=== PATIENT | male | born 1945 | race Caucasian/White ===

== ENCOUNTER 2019-09-02 12:41 | Emergency (ER) | payer MEDICARE, SELFPAY ==
[2019-09-02 12:48] VITALS: BP 133/73; PULSE 48; RESP 18; TEMP 36.9; O2SAT 98; BMI 28.8
--- NOTE | 2019-09-02 12:53 | DI.RAD.S_ITS ---
PROCEDURE: XR CHEST 1V INDICATIONS: chest pain TECHNIQUE: One view of the chest was acquired. COMPARISON: None. FINDINGS: Surgical changes and devices: None. Lungs and pleura: There are low lung volumes, which has resulted in difficulty evaluating for abnormalities at the lung bases. No large area of pulmonary consolidation is evident. There is no effusion or pneumothorax. The pulmonary vascular markings are increased within the perihilar regions. Mediastinum: Mediastinal contours appear normal. Heart size is mildly enlarged. There is aortic atherosclerosis. Bones and chest wall: No suspicious bony lesions. An age-indeterminate 6 posterior left rib deformity is evident. The degenerative changes of the spine and shoulders are present, which are not well characterized. Overlying soft tissues appear unremarkable. IMPRESSION: 1. Cardiomegaly with associated vascular congestion may represent developing pulmonary edema. Please correlate clinically. 2. Age-indeterminate left posterior 6th fracture. Dictated by: Shayne Domínguez M.D. on 09/02/2019 at 12:41 Approved by: Shayne Domínguez M.D. on 09/02/2019 at 12:42
[2019-09-02 13:14] VITALS: BP 120/57; PULSE 60; RESP 16; O2SAT 100
--- NOTE | 2019-09-02 13:23 | PC.NURSE ---
Pt reports hign BP this morning 150s'/100s which is not normal for him, he took his morning meds for HTN. denies CP SOB or NV. BP at this time 120/67 and HR 60. appears well. states im bored IV placed and labs sent. ekg and cxr obtained. NAD.
[2019-09-02 13:30] VITALS: BP 106/66; PULSE 48; O2SAT 98
[2019-09-02 13:33] LABS: Add Manual Diff / Slide Review NO; Basophils Absolute Auto 0 /uL (0-100); Basophils Percent Auto 0.9 % (0-2); Eosinophils Absolute Auto 0 /uL (0-450); Hemoglobin 14.5 g/dL (13.5-17.5); Lymphocytes Absolute Auto 1400 /uL (1100-4500); Lymphocytes Percent Auto 26.5 % (25-40); Mean Corpuscular HGB Conc 35.4 % (30-36); Mean Corpuscular Hemoglobin 32.5 PG (26-34); Mean Corpuscular Volume 91.8 fL (80-100); Monocytes Absolute Auto 700 /uL (0-900); Monocytes Percent Auto 14.1 % (3-14); Neutrophils Absolute Auto 3000 /uL (1500-7000); Neutrophils Percent Auto 57.5 % (50-75); Platelet Count 206 X10^3/uL (150-400); Red Blood Cell Count 4.47 X10^6/uL (4.5-5.9); Red Cell Distribution Width 13.5 % (11.6-14.8); White Blood Cell Count 5.1 X10^3/uL (4.5-11.0)
[2019-09-02 13:41] LABS: Alanine Aminotransferase 24 IU/L (<50); Albumin 4.6 g/dL (3.5-5.0); Albumin Globulin Ratio 1.5 (1.0-2.8); Alkaline Phosphatase 45 U/L (38-126); Aspartate Aminotransferase 30 IU/L (17-59); BUN Creatinine Ratio 18.6 (6-22); Bilirubin Total 0.6 mg/dL (0.2-1.3); Blood Urea Nitrogen 13 mg/dL (9-20); Calcium 9.2 mg/dL (8.4-10.2); Carbon Dioxide 27 mmol/L (22-32); Chloride 98 mmol/L (98-107); Creatine Kinase 92 U/L (55-170); Estimated Glomerular Filt Rate > 60.0 mL/min (>60); Glucose 100 mg/dL (80-110); HEMOLYSIS < 15 (0-50); Lipase 30 U/L (23-300); Potassium 4.1 mmol/L (3.4-5.1); Sodium 134 mmol/L (137-145); Total Protein 7.6 g/dL (6.3-8.2)
[2019-09-02 13:43] LABS: INR 1.1 (0.9-1.3); Prothrombin Time 12.6 SECONDS (10.1-12.7)
[2019-09-02 13:46] LABS: PTT Partial Thromboplastin Tim 32 SECONDS (26.4-36.2)
[2019-09-02 13:53] LABS: Troponin I < 0.012 ng/mL (0.01-0.034)
[2019-09-02 14:00] VITALS: BP 169/72; PULSE 54; O2SAT 94
[2019-09-02 14:19] LABS: B Type Natriuretic Peptide < 100 (<100)
[2019-09-02 16:04] LABS: Creatine Kinase 102 U/L (55-170)
[2019-09-02 16:16] LABS: Troponin I < 0.012 ng/mL (0.01-0.034)
[2019-09-02 16:20] LABS: CKMB % Relative Index 1.6 % (1.5-5.0); Creatine Kinase MB 1.62 ng/mL (<2.37)
[2019-09-02 17:04] VITALS: BP 133/66; PULSE 51; RESP 14; O2SAT 98
--- NOTE | 2019-09-02 19:16 | ED_ITS ---
HPI - General Adult <YASMIN Elkins - Last Filed: 09/02/19 19:30> General Chief complaint: Hypertension Stated complaint: Sent From [place], Elevated BP, Heart Issues Time Seen by Provider: 09/02/19 13:32 Source: patient Mode of arrival: Ambulatory Limitations: no limitations History of Present Illness HPI narrative: The patient is a 73-year-old male former smoker with history of hypertension who presents with a chief complaint of hypertensive episode this morning in the 150/100 range. Currently denies any dizziness, lightheadedness, headache, nausea vomiting diarrhea chest pain shortness of breath. He is without physical complaint on exam. He does admit to some slight ?upset stomach/indigestion over the past few days but nothing today. [place] was told to come to the emergency department to have his troponin checked. Related Data Previous Rx's Medication Instructions Recorded chlorthalidone 25 mg PO QDAY #45 tab 02/07/17 Review of Systems <YASMIN Elkins - Last Filed: 09/02/19 19:30> Review of Systems Narrative: GENERAL: Denies chills, fatigue, malaise, fever, sweats. HEENT: Denies sinus pain, ear pain, sore throat, difficulty swallowing, dizziness. RESPIRATORY: Denies dyspnea, cough, wheezing, hemoptysis, sputum. CARDIOVASCULAR: See HPI GASTROINTESTINAL: See HPI : Denies dysuria, frequency, incontinence, hematuria, urinary retention. MUSCULOSKELETAL: denies weakness, joint pain, or bony pain SKIN: Denies rash, skin lesions, or other NEUROLOGIC: Denies weakness, headache, numbness, change in speech, confusion, seizures, incoordination. PSYCHIATRIC: No concerning psychosocial issues. 12 point review of systems is negative except for those stated above Patient History <YASMIN Elkins - Last Filed: 09/02/19 19:30> Surgical History (Updated 12/20/17 @ 05:05 by Conversion Provider) History of hip replacement Family History (Updated 06/12/15 @ 00:00 by Conversion Provider) Mother Age: 99 Heart disease Hypertension Exam <YASMIN Elkins - Last Filed: 09/02/19 19:30> Narrative Exam Narrative: GENERAL: This is a well-nourished, well-developed patient, no acute distress HEAD: Atraumatic. Normocephalic. No temporal or scalp tenderness. EYES: Pupils equal round and reactive. Extraocular motions intact. No scleral icterus. No injection or drainage. ENT: Nose without bleeding, purulent drainage or septal hematoma. Throat without erythema, tonsillar hypertrophy or exudate. Uvula midline. Airway patent. NECK: Trachea midline. No JVD or lymphadenopathy. Supple, nontender, no meningeal signs. CARDIOVASCULAR: Regular rate and rhythm without murmurs, gallops, or rubs. RESPIRATORY: Clear to auscultation. Breath sounds equal bilaterally. No wheezes, rales, or rhonchi no cough. No increased respiratory effort no accessory muscle use. GASTROINTESTINAL: Abdomen soft, non-tender, nondistended. No hepato- splenomegaly, or palpable masses. No guarding.. No pain to palpation. Negative Gonsales sign. No pain at McBurney's point. Active bowel sounds all quadrants EXTREMITIES: No clubbing, cyanosis, or edema. No joint tenderness, effusion, or edema noted. BACK: Nontender without deformity or crepitance. No flank tenderness. NEURO: AOx3. SKIN: No rash or erythema on visible exam Initial Vital Signs Initial Vital Signs: Vital Signs Temperature 98.4 F 09/02/19 12:48 Pulse Rate 48 L 09/02/19 12:48 Respiratory Rate 18 09/02/19 12:48 Blood Pressure 133/73 09/02/19 12:48 Pulse Oximetry 98 09/02/19 12:48 <Mery Fay MD - Last Filed: 09/02/19 19:48> Initial Vital Signs Initial Vital Signs: Vital Signs Temperature 98.4 F 09/02/19 12:48 Pulse Rate 48 L 09/02/19 12:48 Respiratory Rate 18 09/02/19 12:48 Blood Pressure 133/73 09/02/19 12:48 Pulse Oximetry 98 09/02/19 12:48 Course <YASMIN Elkins - Last Filed: 09/02/19 19:30> Orders Ordered: ED Orders 09/02/19 12:53 XR chest 1V Stat EKG-12 Lead Stat 09/02/19 13:21 B Type Natriuretic Peptide Stat Complete Blood Count AUTO DIFF Stat Comprehensive Metabolic Panel Stat Lipase Stat Partial Thromboplastin Time Stat Prothrombin Time INR Stat Troponin & CK Cardiac Panel Stat 09/02/19 15:35 Troponin & CK Cardiac Panel Stat Vital Signs Vital signs: Vital Signs - 8 hr 09/02/19 12:48 09/02/19 13:14 09/02/19 13:30 Temperature 98.4 F Pulse Rate 48 L 60 48 L Respiratory Rate 18 16 Blood Pressure 133/73 Blood Pressure [Left Arm] 120/57 L 106/66 Pulse Oximetry 98 100 98 09/02/19 14:00 09/02/19 17:04 Temperature Pulse Rate 54 L 51 L Respiratory Rate 14 Blood Pressure 133/66 Blood Pressure [Left Arm] 169/72 H Pulse Oximetry 94 98 <Mery Fay MD - Last Filed: 09/02/19 19:48> Orders Ordered: ED Orders 09/02/19 12:53 XR chest 1V Stat EKG-12 Lead Stat 09/02/19 13:21 B Type Natriuretic Peptide Stat Complete Blood Count AUTO DIFF Stat Comprehensive Metabolic Panel Stat Lipase Stat Partial Thromboplastin Time Stat Prothrombin Time INR Stat Troponin & CK Cardiac Panel Stat 09/02/19 15:35 Troponin & CK Cardiac Panel Stat Vital Signs Vital signs: Vital Signs - 8 hr 09/02/19 12:48 09/02/19 13:14 09/02/19 13:30 Temperature 98.4 F Pulse Rate 48 L 60 48 L Respiratory Rate 18 16 Blood Pressure 133/73 Blood Pressure [Left Arm] 120/57 L 106/66 Pulse Oximetry 98 100 98 09/02/19 14:00 09/02/19 17:04 Temperature Pulse Rate 54 L 51 L Respiratory Rate 14 Blood Pressure 133/66 Blood Pressure [Left Arm] 169/72 H Pulse Oximetry 94 98 Medical Decision Making <LENNY Elkins-BC - Last Filed: 09/02/19 19:30> Lab Data Result diagrams: 09/02/19 13:21 09/02/19 13:21 Labs: Lab Results 09/02/19 09/02/19 09/02/19 Range/Units 13:21 13:21 13:21 WBC 5.1 (4.5-11.0) X10^3/uL RBC 4.47 L (4.5-5.9) X10^6/uL Hgb 14.5 (13.5-17.5) g/dL Hct 41.0 (41-53) % MCV 91.8 (80-100) fL MCH 32.5 (26-34) PG MCHC 35.4 (30-36) % RDW 13.5 (11.6-14.8) % Plt Count 206 (150-400) X10^3/uL Neut % (Auto) 57.5 (50-75) % Lymph % (Auto) 26.5 (25-40) % [place] % (Auto) 14.1 H (3-14) % Eos % (Auto) 1.0 L (2-4) % Baso % (Auto) 0.9 (0-2) % Neut # (Auto) 3000 (8356-0601) /uL Lymph # (Auto) 1400 (2872-8473) /uL [place] # (Auto) 700 (0-900) /uL Eos # (Auto) 0 (0-450) /uL Baso # (Auto) 0 (0-100) /uL PT 12.6 (10.1-12.7) SECONDS INR 1.1 (0.9-1.3) APTT 32 (26.4-36.2) SECONDS Sodium 134 L (137-145) mmol/L Potassium 4.1 (3.4-5.1) mmol/L Chloride 98 (98-107) mmol/L Carbon Dioxide 27 (22-32) mmol/L BUN 13 (9-20) mg/dL Creatinine 0.70 (0.66-1.25) mg/dL Estimated GFR > 60.0 (>60) mL/min BUN/Creatinine Ratio 18.6 (6-22) Glucose 100 (80-110) mg/dL Calcium 9.2 (8.4-10.2) mg/dL Total Bilirubin 0.6 (0.2-1.3) mg/dL AST 30 (17-59) IU/L ALT 24 (<50) IU/L Alkaline Phosphatase 45 (38-126) U/L Total Creatine Kinase 92 (55-170) U/L CK-MB (CK-2) TNP CK-MB (CK-2) Rel Index TNP Troponin I < 0.012 (0.01-0.034) ng/mL B-Natriuretic Peptide (<100) Total Protein 7.6 (6.3-8.2) g/dL Albumin 4.6 (3.5-5.0) g/dL Globulin 3.0 (1.7-4.1) g/dL Albumin/Globulin Ratio 1.5 (1.0-2.8) Lipase 30 (23-300) U/L 09/02/19 09/02/19 Range/Units 13:21 15:35 WBC (4.5-11.0) X10^3/uL RBC (4.5-5.9) X10^6/uL Hgb (13.5-17.5) g/dL Hct (41-53) % MCV (80-100) fL MCH (26-34) PG MCHC (30-36) % RDW (11.6-14.8) % Plt Count (150-400) X10^3/uL Neut % (Auto) (50-75) % Lymph % (Auto) (25-40) % [place] % (Auto) (3-14) % Eos % (Auto) (2-4) % Baso % (Auto) (0-2) % Neut # (Auto) (1179-9966) /uL Lymph # (Auto) (7382-3190) /uL [place] # (Auto) (0-900) /uL Eos # (Auto) (0-450) /uL Baso # (Auto) (0-100) /uL PT (10.1-12.7) SECONDS INR (0.9-1.3) APTT (26.4-36.2) SECONDS Sodium (137-145) mmol/L Potassium (3.4-5.1) mmol/L Chloride (98-107) mmol/L Carbon Dioxide (22-32) mmol/L BUN (9-20) mg/dL Creatinine (0.66-1.25) mg/dL Estimated GFR (>60) mL/min BUN/Creatinine Ratio (6-22) Glucose (80-110) mg/dL Calcium (8.4-10.2) mg/dL Total Bilirubin (0.2-1.3) mg/dL AST (17-59) IU/L ALT (<50) IU/L Alkaline Phosphatase (38-126) U/L Total Creatine Kinase 102 (55-170) U/L CK-MB (CK-2) 1.62 CK-MB (CK-2) Rel Index 1.6 Troponin I < 0.012 (0.01-0.034) ng/mL B-Natriuretic Peptide < 100 (<100) Total Protein (6.3-8.2) g/dL Albumin (3.5-5.0) g/dL Globulin (1.7-4.1) g/dL Albumin/Globulin Ratio (1.0-2.8) Lipase (23-300) U/L Imaging Data Chest x-ray: Radiologist's Impression: [address] [address] XRay Report Signed Patient: Gordon Tristan QMR#: [id number] : 7Acct:[id number] Age/Sex: 73 / MDate of Service: 09/02/19 Loc: ED Accession Number: [id number] Procedure: XR chest 1V Ordering Provider: Mery Fay MD PROCEDURE: XR CHEST 1V INDICATIONS: chest pain TECHNIQUE: One view of the chest was acquired. COMPARISON: None. FINDINGS: Surgical changes and devices: None. Lungs and pleura: There are low lung volumes, which has resulted in difficulty evaluating for abnormalities at the lung bases. No large area of pulmonary consolidation is evident. There is no effusion or pneumothorax. The pulmonary vascular markings are increased within the perihilar regions. Mediastinum: Mediastinal contours appear normal. Heart size is mildly enlarged. There is aortic atherosclerosis. Bones and chest wall: No suspicious bony lesions. An age-indeterminate 6 posterior left rib deformity is evident. The degenerative changes of the spine and shoulders are present, which are not well characterized. Overlying soft tissues appear unremarkable. IMPRESSION: 1. Cardiomegaly with associated vascular congestion may represent developing pulmonary edema. Please correlate clinically. 2. Age-indeterminate left posterior 6th fracture. Dictated by: Shayne Domínguez M.D. on 09/02/2019 at 12:41 Approved by: Shayne Domínguez M.D. on 09/02/2019 at 12:42 ECG Data Attestation: I personally reviewed and interpreted this ECG as follows: Interpretation: Sinus bradycardia. Ventricular rate 46. P.r. interval 132. QRS 114. viewed by Dr Sumeet CAGLE Narrative Medical decision making narrative: The patient is a 73-year-old male who pres ents with a chief complaint of high blood pressure at home, and concern for cardiac issues given recent ?gastritis.Patient has a normal EKG as viewed by Dr. Fay, normal chest x-ray, overall normal lab work. Repeat troponin is also negative. Patient's blood pressure had been in the 110-130 systolic in the emergency department, so I do not see any need to change his antihypertensive medication here. Patient has been without pain or complaint throughout his stay in the emergency department. I discussed at length the importance of following up with primary care provider in the next few days. Patient has no questions or concerns upon discharge and states understanding return precautions as well as care <Mery Fay MD - Last Filed: 09/02/19 19:48> Lab Data Labs: Lab Results 09/02/19 09/02/19 09/02/19 Range/Units 13:21 13:21 13:21 WBC 5.1 (4.5-11.0) X10^3/uL RBC 4.47 L (4.5-5.9) X10^6/uL Hgb 14.5 (13.5-17.5) g/dL Hct 41.0 (41-53) % MCV 91.8 (80-100) fL MCH 32.5 (26-34) PG MCHC 35.4 (30-36) % RDW 13.5 (11.6-14.8) % Plt Count 206 (150-400) X10^3/uL Neut % (Auto) 57.5 (50-75) % Lymph % (Auto) 26.5 (25-40) % [place] % (Auto) 14.1 H (3-14) % Eos % (Auto) 1.0 L (2-4) % Baso % (Auto) 0.9 (0-2) % Neut # (Auto) 3000 (9153-6037) /uL Lymph # (Auto) 1400 (8060-8246) /uL [place] # (Auto) 700 (0-900) /uL Eos # (Auto) 0 (0-450) /uL Baso # (Auto) 0 (0-100) /uL PT 12.6 (10.1-12.7) SECONDS INR 1.1 (0.9-1.3) APTT 32 (26.4-36.2) SECONDS Sodium 134 L (137-145) mmol/L Potassium 4.1 (3.4-5.1) mmol/L Chloride 98 (98-107) mmol/L Carbon Dioxide 27 (22-32) mmol/L BUN 13 (9-20) mg/dL Creatinine 0.70 (0.66-1.25) mg/dL Estimated GFR > 60.0 (>60) mL/min BUN/Creatinine Ratio 18.6 (6-22) Glucose 100 (80-110) mg/dL Calcium 9.2 (8.4-10.2) mg/dL Total Bilirubin 0.6 (0.2-1.3) mg/dL AST 30 (17-59) IU/L ALT 24 (<50) IU/L Alkaline Phosphatase 45 (38-126) U/L Total Creatine Kinase 92 (55-170) U/L CK-MB (CK-2) TNP CK-MB (CK-2) Rel Index TNP Troponin I < 0.012 (0.01-0.034) ng/mL B-Natriuretic Peptide (<100) Total Protein 7.6 (6.3-8.2) g/dL Albumin 4.6 (3.5-5.0) g/dL Globulin 3.0 (1.7-4.1) g/dL Albumin/Globulin Ratio 1.5 (1.0-2.8) Lipase 30 (23-300) U/L 09/02/19 09/02/19 Range/Units 13:21 15:35 WBC (4.5-11.0) X10^3/uL RBC (4.5-5.9) X10^6/uL Hgb (13.5-17.5) g/dL Hct (41-53) % MCV (80-100) fL MCH (26-34) PG MCHC (30-36) % RDW (11.6-14.8) % Plt Count (150-400) X10^3/uL Neut % (Auto) (50-75) % Lymph % (Auto) (25-40) % [place] % (Auto) (3-14) % Eos % (Auto) (2-4) % Baso % (Auto) (0-2) % Neut # (Auto) (5252-9736) /uL Lymph # (Auto) (9858-3722) /uL [place] # (Auto) (0-900) /uL Eos # (Auto) (0-450) /uL Baso # (Auto) (0-100) /uL PT (10.1-12.7) SECONDS INR (0.9-1.3) APTT (26.4-36.2) SECONDS Sodium (137-145) mmol/L Potassium (3.4-5.1) mmol/L Chloride (98-107) mmol/L Carbon Dioxide (22-32) mmol/L BUN (9-20) mg/dL Creatinine (0.66-1.25) mg/dL Estimated GFR (>60) mL/min BUN/Creatinine Ratio (6-22) Glucose (80-110) mg/dL Calcium (8.4-10.2) mg/dL Total Bilirubin (0.2-1.3) mg/dL AST (17-59) IU/L ALT (<50) IU/L Alkaline Phosphatase (38-126) U/L Total Creatine Kinase 102 (55-170) U/L CK-MB (CK-2) 1.62 CK-MB (CK-2) Rel Index 1.6 Troponin I < 0.012 (0.01-0.034) ng/mL B-Natriuretic Peptide < 100 (<100) Total Protein (6.3-8.2) g/dL Albumin (3.5-5.0) g/dL Globulin (1.7-4.1) g/dL Albumin/Globulin Ratio (1.0-2.8) Lipase (23-300) U/L Discharge Plan Departure Patient Disposition: Home Clinical Impression: Essential hypertension, Left ventricular hypertrophy Discharge Date/Time: 09/02/19 17:07 Instructions: DI for High Blood Pressure Activity Restrictions/Additional Instructions: Today your lab evaluation came back with no acute abnormalities. Your blood pressure has been very good in the emergency department. Please follow up with primary care provider regarding this. Please come back to emergency department for any acute concerns such as concern of heart attack, stroke, increased shortness of breath, inability keep down fluids, abdominal pain, abdominal pain with fever etc.. Prescriptions: No Action chlorthalidone 25 MG tablet 25 mg PO QDAY Qty: 45 RF: 3 Referrals: Wolfgang Pelayo [Primary Care Provider] -
== END 2019-09-02 17:07 | disposition home or self-care (01) ==
PROVIDERS: Emergency Medicine; Emergency Provider Nurse Practitioner Family; PCP Family Medicine
DX: I10 Essential (primary) hypertension (principal); I51.7 Cardiomegaly; R07.9 Chest pain, unspecified; R00.1 Bradycardia, unspecified
CPT/HCPCS: 36415; 71045; 80053; 82550; 82553; 83690; 83880; 84484; 85025; 85610; 85730; 93005; 99284; 99285

== ENCOUNTER → 2020-07-01 10:53 | Outpatient (CLI) | payer MEDICARE, SELFPAY ==
--- NOTE | 2020-07-01 | DI.MRI.S_ITS ---
PROCEDURE: MR HEAD/BRAIN WO CON INDICATIONS: Dysphasia TECHNIQUE: Noncontrast axial T1 spin echo, axial T2 fast spin echo, sagittal and axial FLAIR, coronal T2 fast spin echo, axial gradient echo, axial diffusion and ADC through the brain. COMPARISON: None. FINDINGS: Image quality: Excellent. CSF Spaces: Basal cisterns are patent. No extra-axial fluid collections. Ventricles are normal in size and shape. Brain: No intracranial masses or hemorrhage. [place]/white matter interface is normal. Brainstem appears normal. Diffusion-weighted images demonstrate no acute ischemic insult. No chronic ischemic insults. Normal intravascular flow voids are present. Skull and face: Calvarium has normal marrow signal. Orbits appear normal. Sinuses: Sinuses and mastoids are clear. IMPRESSION: Normal for age, source of current symptoms is not seen. Dictated by: Don Wade M.D. on 07/01/2020 at 12:11 Approved by: Don Wade M.D. on 07/01/2020 at 12:12
== END ==
PROVIDERS: PCP Family Medicine; Referring Provider Family Medicine; Visit Provider Family Medicine
DX: R47.02 Dysphasia (principal)
CPT/HCPCS: 70551

== ENCOUNTER → 2021-04-20 09:23 | Outpatient (CLI) | payer MEDICARE, SELFPAY ==
[2021-04-20 20:28] LABS: Cholesterol 112 mg/dL (140-199); HDL Cholesterol 53 mg/dL (40-60); LDL Cholesterol Calculated 48 mg/dL (<100); Triglycerides 55 mg/dL (35-150)
== END ==
PROVIDERS: PCP Family Medicine; Visit Provider Internal Medicine Cardiovascular Disease
DX: I25.110 Atherosclerotic heart disease of native coronary artery with unstable angina pectoris (principal); E78.5 Hyperlipidemia, unspecified
CPT/HCPCS: 80061

== ENCOUNTER → 2022-02-03 10:53 | Outpatient (CLI) | payer MEDICARE, SELFPAY ==
[2022-02-03 20:06] LABS: Add Manual Diff / Slide Review NO; Basophils Absolute Auto 100 /uL (0-100); Basophils Percent Auto 0.8 % (0-2); Eosinophils Absolute Auto 200 /uL (0-450); Eosinophils Percent Auto 3.4 % (2-4); Hematocrit 40.1 % (41-53); Hemoglobin 13.6 g/dL (13.5-17.5); Lymphocytes Absolute Auto 1400 /uL (1100-4500); Lymphocytes Percent Auto 20.1 % (25-40); Mean Corpuscular HGB Conc 33.9 % (30-36); Mean Corpuscular Hemoglobin 31.4 PG (26-34); Mean Corpuscular Volume 92.7 fL (80-100); Monocytes Absolute Auto 900 /uL (0-900); Monocytes Percent Auto 13.9 % (3-14); Neutrophils Absolute Auto 4200 /uL (1500-7000); Neutrophils Percent Auto 61.8 % (50-75); Platelet Count 199 X10^3/uL (150-400); Red Blood Cell Count 4.32 X10^6/uL (4.5-5.9); Red Cell Distribution Width 13.7 % (11.6-14.8); White Blood Cell Count 6.8 X10^3/uL (4.5-11.0)
[2022-02-03 20:11] LABS: Alanine Aminotransferase 25 IU/L (<50); Albumin 3.9 g/dL (3.5-5.0); Albumin Globulin Ratio 1.3 (1.0-2.8); Alkaline Phosphatase 52 U/L (38-126); Aspartate Aminotransferase 43 IU/L (17-59); BUN Creatinine Ratio 22.9 (6-22); Bilirubin Total 0.6 mg/dL (0.2-1.3); Blood Urea Nitrogen 16 mg/dL (9-20); Calcium 8.7 mg/dL (8.4-10.2); Carbon Dioxide 28 mmol/L (22-32); Chloride 102 mmol/L (98-107); Cholesterol 95 mg/dL (140-199); Estimated Glomerular Filt Rate > 60 mL/min (>60); Glucose 109 mg/dL (80-110); HDL Cholesterol 40 mg/dL (40-60); HEMOLYSIS < 15 (0-50); LDL Cholesterol Calculated 43 mg/dL (<100); Potassium 4.4 mmol/L (3.4-5.1); Sodium 136 mmol/L (137-145); Total Protein 6.9 g/dL (6.3-8.2); Triglycerides 61 mg/dL (35-150)
[2022-02-04 19:07] LABS: Hep C Virus Ab w/Reflex Quant NEGATIVE s/c (NEGATIVE)
== END ==
PROVIDERS: PCP Family Medicine; Visit Provider Family Medicine
DX: Z96.642 Presence of left artificial hip joint (principal); E78.5 Hyperlipidemia, unspecified; I10 Essential (primary) hypertension; I25.110 Atherosclerotic heart disease of native coronary artery with unstable angina pectoris; I25.2 Old myocardial infarction; I42.2 Other hypertrophic cardiomyopathy; J44.9 Chronic obstructive pulmonary disease, unspecified; Z11.59 Encounter for screening for other viral diseases
CPT/HCPCS: 80053; 80061; 85025; 86803

== ENCOUNTER → 2023-01-12 10:15 | Outpatient (CLI) | payer MEDICARE, OTHER, SELFPAY ==
[2023-01-12 20:21] LABS: Cholesterol 109 mg/dL (140-199); Glucose 102 mg/dL (80-110); HDL Cholesterol 41 mg/dL (40-60); LDL Cholesterol Calculated 59 mg/dL (<100); Triglycerides 44 mg/dL (35-150)
[2023-01-12 20:50] LABS: Prostate Specific Antigen Scrn 0.242 ng/mL (0.1-4.0)
[2023-01-13 22:07] LABS: Hep C Virus Ab w/Reflex Quant NEGATIVE s/c (NEGATIVE)
== END ==
PROVIDERS: PCP Family Medicine; Visit Provider Family Medicine
DX: Z13.1 Encounter for screening for diabetes mellitus (principal); Z12.5 Encounter for screening for malignant neoplasm of prostate; E78.5 Hyperlipidemia, unspecified; Z11.59 Encounter for screening for other viral diseases; Z12.11 Encounter for screening for malignant neoplasm of colon; Z13.220 Encounter for screening for lipoid disorders
CPT/HCPCS: 80061; 82947; 86803; G0103

== ENCOUNTER → 2024-05-03 09:55 | Outpatient (CLI) | payer MEDICARE, OTHER, SELFPAY ==
[2024-05-03 20:15] LABS: Cholesterol 110 mg/dL (140-199); Glucose 98 mg/dL (80-110); HDL Cholesterol 52 mg/dL (40-60); LDL Cholesterol Calculated 48 mg/dL (<100); Triglycerides 48 mg/dL (35-150)
[2024-05-03 20:45] LABS: Prostate Specific Antigen Scrn 0.243 ng/mL (0.1-4.0)
[2024-05-03 21:36] LABS: Hep C Virus Ab w/Reflex Quant NEGATIVE s/c (NEGATIVE)
== END ==
PROVIDERS: PCP Family Medicine; Visit Provider Family Medicine
DX: Z13.1 Encounter for screening for diabetes mellitus (principal); Z12.5 Encounter for screening for malignant neoplasm of prostate; Z13.6 Encounter for screening for cardiovascular disorders; Z11.59 Encounter for screening for other viral diseases; Z13.220 Encounter for screening for lipoid disorders
CPT/HCPCS: 80061; 82947; 86803; G0103

== ENCOUNTER → 2024-11-07 10:29 | Outpatient (CLI) | payer MEDICARE, OTHER, SELFPAY ==
[2024-11-07 19:39] LABS: Add Manual Diff / Slide Review NO; Basophils Absolute Auto 100 /uL (0-100); Basophils Percent Auto 1.2 % (0-2); Eosinophils Absolute Auto 200 /uL (0-450); Eosinophils Percent Auto 2.9 % (2-4); Hematocrit 40.5 % (41-53); Hemoglobin 13.9 g/dL (13.5-17.5); Lymphocytes Absolute Auto 1500 /uL (1100-4500); Lymphocytes Percent Auto 22.6 % (25-40); Mean Corpuscular HGB Conc 34.2 % (30-36); Mean Corpuscular Hemoglobin 31.8 PG (26-34); Mean Corpuscular Volume 93.1 fL (80-100); Monocytes Absolute Auto 1000 /uL (0-900); Monocytes Percent Auto 15.3 % (3-14); Neutrophils Absolute Auto 3900 /uL (1500-7000); Platelet Count 218 X10^3/uL (150-400); Red Blood Cell Count 4.36 X10^6/uL (4.5-5.9); Red Cell Distribution Width 13.6 % (11.6-14.8); White Blood Cell Count 6.7 X10^3/uL (4.5-11.0)
[2024-11-07 19:46] LABS: BUN Creatinine Ratio 16.5 (6-22); Blood Urea Nitrogen 14 mg/dL (9-20); Carbon Dioxide 26 mmol/L (22-32); Chloride 105 mmol/L (98-107); Cholesterol 100 mg/dL (140-199); Estimated Glomerular Filt Rate > 60 mL/min (>60); Glucose 102 mg/dL (80-110); HDL Cholesterol 49 mg/dL (40-60); HEMOLYSIS < 15 (0-50); LDL Cholesterol Calculated 43 mg/dL (<100); Potassium 4.8 mmol/L (3.4-5.1); Sodium 139 mmol/L (137-145); Triglycerides 41 mg/dL (35-150)
[2024-11-07 20:18] LABS: Prostate Specific Antigen Scrn 0.177 ng/mL (0.1-4.0)
== END ==
PROVIDERS: PCP Family Medicine; Visit Provider Family Medicine
DX: I25.110 Atherosclerotic heart disease of native coronary artery with unstable angina pectoris (principal); Z12.5 Encounter for screening for malignant neoplasm of prostate; J44.9 Chronic obstructive pulmonary disease, unspecified; I10 Essential (primary) hypertension; E78.5 Hyperlipidemia, unspecified; I25.2 Old myocardial infarction
CPT/HCPCS: 80048; 80061; 85025; G0103